=== PATIENT | male | born 1955 | race Caucasian/White ===

== ENCOUNTER → 2017-11-08 | Outpatient (CLI) | payer BC ==
[~2017-11-08] MED LIST: 00186-0372-20 INH; ANTIVERT 25MG25 MG PO; ASPIRIN 81M81 MG/TA2 PO; ATARAX25 MG PO; BACTRIM DS 8001 TAB PO; BENICAR 20MG TA20 MG PO; CARDI-OMEGA1000 MG PO; CENTRUM1 TAB PO; CEPHALEXIN500 M1 PO; CLINDAMYCIN HC150 MG PO; LIPITOR 10MG10 MG PO; LIPITOR 40MG TA40 MG PO; PREDNISONE10 MG PO; SINGULAIR 110 MG/TAB PO
== END ==
LOC: COL.CARD 06:13
DX: R07.1 Chest pain on breathing (principal)

== ENCOUNTER 2018-05-10 13:01 | Outpatient (RCR) | payer OTHER | END 2018-07-17 15:49 | disposition home or self-care (01) | LOC: WSOH 13:01 | DX: S45.211 Laceration of axillary or brachial vein, right side (principal); M67.813 Other specified disorders of tendon, right shoulder; M19.011 Primary osteoarthritis, right shoulder; Y92.214 College as the place of occurrence of the external cause; X50.0XXA Overexertion from strenuous movement or load, initial encounter; Y93.89 Activity, other specified; Y99.0 Civilian activity done for income or pay ==